=== PATIENT | male | born 1985 | race African-American/Black ===

== ENCOUNTER 2023-06-24 10:49 | Emergency (ER) | payer OTHER ==
[2023-06-24 11:00] VITALS: BP 132/77; O2SAT 100
--- NOTE | 2023-06-24 11:17 | ED Physician Documentation ---
PD HPI BACK PAIN - Stated complaint Stated Complaint: BACK PX/INJ - Chief complaint Chief Complaint: Back Pain - History obtained from History obtained from: Patient - Additional information Additional information: Patient is a 37-year-old male presenting for evaluation of low back pain. Patient was bending down to pickle cutter something at his work when he felt a pop sensation in his back and reports pain in the right lower lumbar region. Pain does not radiate. It is worse with certain movements. Denies history of prior issues with this back. No bowel or bladder incontinence. Does not take blood thinners.He did take 2 tabs of acetaminophen. Review of Systems Constitutional: denies: Fever Cardiac: denies: Chest pain / pressure Respiratory: denies: Dyspnea GI: denies: Abdominal Pain : denies: Incontinent Musculoskeletal: reports: Back pain PD PAST MEDICAL HISTORY - Past Medical History Past Medical History: No Cardiovascular: None Respiratory: None Neuro: None Endocrine/Autoimmune: None GI: None : None HEENT: None Psych: None Musculoskeletal: None Derm: None - Past Surgical History Past Surgical History: No - Present Medications Home Medications: Ambulatory Orders Medication Instructions Recorded Confirmed Cyclobenzaprine [Flexeril] 10 mg PO TID PRN #20 tablet 06/24/23 Lidocaine Patch 5% [Lidoderm Patch] 1 patch TOP DAILY PRN #10 patch 06/24/23 - Allergies Allergies/Adverse Reactions: Allergies Allergy/AdvReac Type Severity Reaction Status Date / Time No Known Drug Allergies Allergy Verified 06/24/23 10:54 - Social History Does the pt smoke?: Yes Smoking Status: Current every day smoker Does the pt drink ETOH?: Yes Does the pt have substance abuse?: Yes Substance Use and Type: Marijuana - Immunizations Immunizations are current?: Yes PD ED PE NORMAL - General General: Alert and oriented X 3, No acute distress, Well developed/nourished - HEENT HEENT: Atraumatic, Moist mucous membranes, Pharynx benign - Neck Neck: Supple, no meningeal sign - Cardiac Cardiac: RRR, Strong equal pulses - Respiratory Respiratory: No respiratory distress, Clear bilaterally - Abdomen Abdomen: Soft, Non tender, Non distended - Back Back: No spinal TTP, Other (Right paralumbar region tenderness to palpation, no step-offs, no erythema, no swelling) - Derm Derm: Warm and dry - Extremities Extremities: No deformity - Neuro Neuro: Alert and oriented X 3, No motor deficit, No sensory deficit, Normal speech Results - Vitals Vitals: Vital Signs - 24 hr 06/24/23 10:55 Temperature 36.9 C Heart Rate 82 Respiratory 16 Rate Blood Pressure 132/77 H O2 Saturation 100 Oxygen O2 Source Room air PD Medical Decision Making - ED course Complexity details: re-evaluated patient ED course: Patient is a 37-year-old male with no significant past medical history presenting for evaluation of atraumatic low back pain that started after bending down to pickle cutter something at work. Normal neuroexam. No red flag signs or symptoms in regards to his back pain to suggest cauda equina. No trauma to warrant emergent imaging. Patient has no spinal tenderness. Distal pulses intact. Discussed options for treatment of his pain with trial of muscle relaxers, Anti-inflammatories and lidocaine patches. Patient is agreeable. He received a dose of Flexeril and lidocaine patch here. He is ambulatory at discharge and understands need for close follow-up with PCP. Patient counseled on concerning symptoms to return for. Departure - Departure Disposition: 01 Home, Self Care Clinical Impression: Low back strain Condition: Stable Instructions: ED Sprain Strain Lumbar Prescriptions: Cyclobenzaprine [Flexeril] 10 mg PO TID PRN #20 tablet PRN Reason: Spasms Lidocaine Patch 5% [Lidoderm Patch] 1 patch TOP DAILY PRN #10 patch PRN Reason: pain Comments: You were evaluated after an injury to your lower back. I have sent a prescription for muscle relaxer as well as lidocaine patches to [facility] in [place]. Please also continue with anti-inflammatory such as ibuprofen or acetaminophen. You can try ice versus heat on the area of pain to see which one feels better. I would also recommend close follow-up with your primary care provider. Have also given you a work note as I would not recommend doing any lifting, bending or twisting movements until your pain is resolved. Return to the ER with any worsening symptoms. Forms: Activity restrictions Discharge Date/Time: 06/24/23 11:28
[2023-06-24] MEDS: CYCLOBENZAPRINE 10 MG TABLET PO STA (11:22)
[2023-06-24] MEDS: LIDOCAINE PATCH 4% TOP STA (11:22)
== END 2023-06-24 11:28 | disposition home or self-care (01) ==
LOC: ED 10:49
DX: S39.012A Strain of muscle, fascia and tendon of lower back, initial encounter (principal); X58.XXXA Exposure to other specified factors, initial encounter; F17.200 Nicotine dependence, unspecified, uncomplicated
CPT/HCPCS: 99282; 99283; A9270